=== PATIENT | female | born 1980 | race Caucasian/White ===

== ENCOUNTER 2017-07-02 07:00 | Emergency (ER) | payer OTHER ==
[~2017-07-02] VITALS: Ht 165.1 cm; Wt 61.2 kg
[2017-07-02] MEDS ORDERED: KETOROLAC 30 MG/ML VIAL IVP STA (07:24)
[2017-07-02 07:33] LABS: BASOPHILS % (AUTO) 1 % (0-10); EOSINOPHILS % (AUTO) 1 % (0-10); LYMPHOCYTES # (AUTO) 1.5 X 10^3 (1.0-4.0); LYMPHOCYTES % (AUTO) 28 % (12-44); MEAN CORPUSCULAR HEMOGLOBIN 30 PG (25-34); MEAN CORPUSCULAR HGB CONC 34 G/DL (32-36); MEAN CORPUSCULAR VOLUME 90 FL (80-99); MEAN PLATELET VOLUME 9.9 FL (7.4-10.4); MONOCYTES # (AUTO) 0.5 X 10^3 (0.0-1.0); MONOCYTES % (AUTO) 9 % (0-12); NEUTROPHILS # (AUTO) 3.2 X 10^3 (1.8-7.8); NEUTROPHILS % (AUTO) 61 % (42-75); PLATELET COUNT 188 10^3/uL (130-400); RED BLOOD COUNT 4.37 10^6/uL (4.35-5.85); WHITE BLOOD COUNT 5.2 10^3/uL (4.3-11.0)
[2017-07-02] MEDS ORDERED: LEVO50TA PO (07:39)
[2017-07-02] MEDS ORDERED: CALC-250 PO (07:39)
--- NOTE | 2017-07-02 07:51 | ED General ---
General Chief Complaint: Neurological Problems Stated Complaint: REAR HEAD PAIN Nursing Triage Note: pt reports for 2 weeks she has had increased SEE and ear pain and desribes it as a pressure around 3:00 am every day. Pt states she has been seen by a nurse practitioner at Dr. Rodriguez office and a Nurse Practioner at Dr. Segura. Pt states she has been taking an antibiotic and allergy medication to treat sinus infection. Pt reports she does not believe it to be sinus related. Nursing Sepsis Screen: No Definite Risk Source of Information: Patient Exam Limitations: No Limitations History of Present Illness Time Seen by Provider: 07:05 Initial Comments Here with report of posterior headache that she describes as a pressure that typically starts at about 3 a.m. and go still 7 a.m. and it gets better. His is been occurring daily. She states that the headaches are quite significant. She is worried that she has a brain tumor. Denies other dysfunction. She has been seen at Dr Ndiaye's office and has MRI scheduled for later this week. She has been taking sinus medication but does not believe this is sinus related. She's never had anything like this before. Timing/Duration: Other (3 weeks) Severity: Moderate Associated Systoms: No Chest Pain, No Cough, Fever/Chills, Headaches, Nausea/ Vomiting, No Shortness of Air, No Weakness Allergies and Home Medications Allergies Coded Allergies: succinylcholine (Verified Allergy, Unknown, 07/02/17) Home Medications Cholecalciferol 5,000 Unit Capsule, 5,000 UNIT PO, (Reported) Levothyroxine Sodium 50 Mcg Tablet, 50 MCG PO, (Reported) Constitutional: see HPI, No chills, No fever EENTM: no symptoms reported Respiratory: no symptoms reported Cardiovascular: no symptoms reported Gastrointestinal: see HPI, nausea Genitourinary: no symptoms reported : No Musculoskeletal: no symptoms reported Skin: no symptoms reported Psychiatric/Neurological: See HPI, Headache (left posterior pressure), Denies Numbness, Denies Paresthesia, Denies Weakness Hematologic/Lymphatic: No Symptoms Reported All Other Systems Reviewed Negative Unless Noted: Yes Past Biwtick-Cppjgb-Uokesb Hx Patient Social History Alcohol Use: Rarely Uses Recreational Drug Use: No Smoking Status: Never a Smoker 2nd Hand Smoke Exposure: No Recent Foreign Travel: No Contact w/Someone Who Travel: No Recent Infectious Disease Expo: No Physical Abuse: No Sexual Abuse: No Mistreated: No Fear: No Surgeries History of Surgeries: Yes Surgeries: Orthopedic, Tonsillectomy Respiratory History of Respiratory Disorde: No Cardiovascular History of Cardiac Disorders: No Neurological History of Neurological Disord: No Genitourinary History of Genitourinary Disor: No Gastrointestinal History of Gastrointestinal Di: No Musculoskeletal History of Musculoskeletal Dis: Yes Musculoskeletal Disorders: Fractures Endocrine History of Endocrine Disorders: Yes Endocrine Disorders: Hypothyroidsim Cancer History of Cancer: No Psychosocial History of Psychiatric Problem: No Suicide Risk Score: 0 Reviewed Nursing Assessment Reviewed/Agree w Nursing PMH: Yes Family Medical History Significant Family History: Other Conditions/Hx (dementia) Physical Exam Vital Signs Vital Sign - Last 12Hours 07/02/17 07:29 Temp 98.5 Pulse 107 Resp 18 B/P (MAP) 146/89 Pulse Ox 100 Capillary Refill : Less Than 3 Seconds General Appearance: No Apparent Distress, WD/WN, Anxious HEENT: PERRL/EOMI, TMs Normal, Pharynx Normal, Other (2 x 2 millimeter flat shiny nodule behind left here overlying 1 x 1 cm swelling.) Neck: Non Tender, Supple Respiratory: Lungs Clear, Normal Breath Sounds Cardiovascular: Regular Rate, Rhythm, No Murmur Gastrointestinal: Non Tender, Soft Back: Normal Inspection, No CVA Tenderness, No Vertebral Tenderness Extremity: Normal Inspection, Normal Range of Motion, Non Tender Neurologic/Psychiatric: Alert, Oriented x3, No Motor/Sensory Deficits, Normal Mood/Affect, weight control lecturer II-XII Norm as Tested Skin: Normal Color, Warm/Dry Progress/Results/Core Measures Results/Orders Lab Results Laboratory Tests Test 07/02/17 07:24 Range/Units White Blood Count 5.2 4.3-11.0 10^3/uL Red Blood Count 4.37 4.35-5.85 10^6/uL Hemoglobin 13.2 11.5-16.0 G/DL Hematocrit 39 35-52 % Mean Corpuscular Volume 90 80-99 FL Mean Corpuscular Hemoglobin 30 25-34 PG Mean Corpuscular Hemoglobin Concent 34 32-36 G/DL Red Cell Distribution Width 12.0 10.0-14.5 % Platelet Count 188 130-400 10^3/uL Mean Platelet Volume 9.9 7.4-10.4 FL Neutrophils (%) (Auto) 61 42-75 % Lymphocytes (%) (Auto) 28 12-44 % Monocytes (%) (Auto) 9 0-12 % Eosinophils (%) (Auto) 1 0-10 % Basophils (%) (Auto) 1 0-10 % Neutrophils # (Auto) 3.2 1.8-7.8 X 10^3 Lymphocytes # (Auto) 1.5 1.0-4.0 X 10^3 Monocytes # (Auto) 0.5 0.0-1.0 X 10^3 Eosinophils # (Auto) 0.0 0.0-0.3 10^3/uL Basophils # (Auto) 0.0 0.0-0.1 10^3/uL Sodium Level 140 135-145 MMOL/L Potassium Level 3.8 3.6-5.0 MMOL/L Chloride Level 107 98-107 MMOL/L Carbon Dioxide Level 19 L 21-32 MMOL/L Anion Gap 14 5-14 MMOL/L Blood Urea Nitrogen 15 7-18 MG/DL Creatinine 0.88 0.60-1.30 MG/DL Estimat Glomerular Filtration Rate > 60 BUN/Creatinine Ratio 17 Glucose Level 97 70-105 MG/DL Calcium Level 9.8 8.5-10.1 MG/DL Total Bilirubin 0.7 0.1-1.0 MG/DL Aspartate Amino Transf (AST/SGOT) 17 5-34 U/L Alanine Aminotransferase (ALT/SGPT) 11 0-55 U/L Alkaline Phosphatase 56 40-136 U/L Total Protein 8.0 6.4-8.2 GM/DL Albumin 4.7 H 3.2-4.5 GM/DL My Orders Orders - MAI ALFORD MD Cbc With Automated Diff (07/02/17 07:24) Comprehensive Metabolic Panel (07/02/17 07:24) Tick Panel With Lyme Eia (07/02/17 07:24) Saline Lock/Iv-Start (07/02/17 07:24) Urine Bedside (07/02/17 07:24) Ketorolac Injection (Toradol Injection) (07/02/17 07:24) West Nile Virus Igg & M (07/02/17 07:27) Ct Head Wo (07/02/17 08:05) Dexamethasone Pf Injection (Decadron Pf (07/02/17 09:32) Vital Signs/I&O Vital Sign - Last 12Hours 07/02/17 07:29 Temp 98.5 Pulse 107 Resp 18 B/P (MAP) 146/89 Pulse Ox 100 Blood Pressure Mean: 108 Progress Note : Progress Note Seen and evaluated. IV, labs, ECG and CT head ordered. We will check tick panel and West Nile virus. Patient moved from [place] back to [place] in March of this year. Toradol 30 mg IV. 0940: No acute findings. Patient feeling okay. Discharged home with return precautions. Patient verbalize understanding instructions and agreement with plan. We will give Decadron 10 mg IV. Diagnostic Imaging Diagonstic Imaging: CT Plain Films/CT/US/NM/MRI: head Comments VIA [facility] [address] [place], [place] NAME: KELL NDIAYE [facility] REC#: [id number] PT STATUS: REG ER : 1980 PHYSICIAN: MAI ALFORD MD ADMIT DATE: 07/02/17/ER Draft Date of Exam:07/02/17 CT HEAD WO PROCEDURE: CT head without contrast. TECHNIQUE: Multiple contiguous axial images were obtained through the brain without the use of intravenous contrast. INDICATION: Head pain. There is no hemorrhage, hydrocephalus, edema, mass, mass effect or evidence for elevated intracranial pressures. The basilar cisterns patent. The sulci non-effaced. Orbits, sinuses and calvarium appeared nonacute. IMPRESSION: Dictated on workstation # [id number] Dict: 07/02/17 0837 Trans: 07/02/17 0920 [facility] [id number] Interpreted by: SHERICE GUTIERREZ Electronically signed by: Departure Impression Impression: Primary Impression: Headache Qualified Codes: R51 - Headache Disposition: 01 HOME, SELF-CARE Condition: Stable Departure-Patient Inst. Decision time for Depature: 09:43 Referrals: JUSTIN MERCEDES MD (PCP/Family) Primary Care Physician Patient Instructions: Headache, Adult (DC) Add. Discharge Instructions: All discharge instructions reviewed with patient and/or family. Voiced understanding. Take medications as directed. Continue appointments as previously scheduled. You may take ibuprofen 800 mg every 8 hours as needed for pain. Return for worse pain, fever, vomiting, weakness, breathing problems, vision or balance problems or other concerns as needed. There is no indication for lumbar puncture or further evaluation here in the ER today although these may be pursued as outpatient under the direction of your doctor. Copy Copies To 1: SHIN NDIAYE MD Copies To 2: JUSTIN MERCEDES MD, TIMOTHY D MD Jul 02, 2017 07:51
[2017-07-02 07:53] LABS: ALANINE AMINOTRANSFERASE 11 U/L (0-55); ALBUMIN 4.7 GM/DL (3.2-4.5); ANION GAP 14 MMOL/L (5-14); ASPARTATE AMINO TRANSFERASE 17 U/L (5-34); BILIRUBIN,TOTAL 0.7 MG/DL (0.1-1.0); BLOOD UREA NITROGEN 15 MG/DL (7-18); BUN/CREATININE RATIO 17; CALCIUM 9.8 MG/DL (8.5-10.1); CARBON DIOXIDE 19 MMOL/L (21-32); CHLORIDE 107 MMOL/L (98-107); CREATININE SERUM 0.88 MG/DL (0.60-1.30); GFR ESTIMATED > 60; GLUCOSE 97 MG/DL (70-105); POTASSIUM 3.8 MMOL/L (3.6-5.0); SODIUM 140 MMOL/L (135-145)
--- NOTE | 2017-07-02 09:20 | Diagnostic Imaging Report ---
PROCEDURE: CT head without contrast. TECHNIQUE: Multiple contiguous axial images were obtained through the brain without the use of intravenous contrast. INDICATION: Head pain. There is no hemorrhage, hydrocephalus, edema, mass, mass effect or evidence for elevated intracranial pressures. The basilar cisterns patent. The sulci non-effaced. Orbits, sinuses and calvarium appeared nonacute. IMPRESSION: Negative Dictated by: Dictated on workstation # [id number]
[2017-07-02] MEDS ORDERED: DEXAMETHASONE PF 10 MG/ML (DECADRON) VIAL IV STA (09:32)
[2017-07-02] MEDS ORDERED: DEXAMETHASONE 10 MG/ML (DECADRON) 1 ML VIAL ONE (09:50)
[2017-07-02 10:10] VITALS: BP 125/78
[2017-07-04 01:23] LABS: LYME AB G M 0.06 Index (0.00-0.89)
[2017-07-04 07:55] LABS: LYME AB INTERP Negative (Negative)
[2017-07-04 07:57] LABS: WEST NILE IGG 0.45 Index (0.00-1.29); WEST NILE IGM 0.01 Index (0.00-0.89)
[2017-07-04 13:47] LABS: EHRLICHIA CHAFFEENSIS G ABY <1:16 (<1:16)
[2017-07-04 15:29] LABS: IGG ROCKY MOUNTAIN SPOTTED FEV <1:16 (<1:16); IGM ROCKY MOUNTAIN SPOTTED FEV <1:10 (<1:10)
[2017-07-05 10:20] LABS: TULAREMIA ANTIBODY <1:20
== END 2017-07-02 10:10 | disposition home or self-care (01) ==
LOC: EDUNIT# 07:00 → ER 07:04
DX: R51 Headache (principal); E03.9 Hypothyroidism, unspecified; Z90.89 Acquired absence of other organs
CPT/HCPCS: 36415; 70450; 80053; 84703; 85025; 86618; 86666; 86668; 86757; 86788; 86789; 96374; 96375

== ENCOUNTER → 2017-07-06 | Outpatient (CLI) | payer OTHER ==
[~2017-07-06] MED LIST: CALC-250 PO; GADOBUTROL 7.5 MMOL/7.5 ML (GADAVIST) VIAL IV ONE; LEVO50TA PO
--- NOTE | 2017-07-06 16:01 | Diagnostic Imaging Report ---
PROCEDURE: MR imaging of the brain with and without contrast. TECHNIQUE: Multiplanar, multisequence MR imaging of the brain was performed with and without contrast. INDICATION: Pulsatile tinnitus. Ear pain. Headache. COMPARISON: CT head without contrast of 07/02/2017. FINDINGS: No abnormal signal, enhancement, restricted water diffusion, or hemosiderin deposition. Normal morphology including the major midline structures, sella, and posterior fossa. Dedicated 3D high-resolution sequence through the level of the internal auditory canals demonstrates normal morphology with no abnormal mass. The orbits are negative. The paranasal sinuses and mastoids are clear. No extra-axial fluid collections or hydrocephalus. Normal intracranial flow voids. Normal bone marrow signal. IMPRESSION: Negative brain MRI including dedicated high-resolution 3D sequence through the level of the IACs. Dictated by: Dictated on workstation # [id number]
== END ==
LOC: RAD 10:57
PROVIDERS: ATTEND Otolaryngology Otolaryngology/Facial Plastic Surgery
DX: H93.A3 Pulsatile tinnitus, bilateral (principal); H92.03 Otalgia, bilateral; R51 Headache
CPT/HCPCS: 70553

== ENCOUNTER → 2018-04-19 | Outpatient (CLI) | payer OTHER ==
[~2018-04-19] MED LIST changes: -GADOBUTROL 7.5 MMOL/7.5 ML (GADAVIST) VIAL IV ONE
--- NOTE | 2018-04-19 13:48 | Diagnostic Imaging Report ---
INDICATION: Bilateral breast pain and lumpiness. No prior mammograms are available for comparison. 2-D and 3-D bilateral diagnostic mammography was performed. The current study was also evaluated with a Computer Aided Detection (CAD) system. Both breasts are heterogeneously dense, limiting the sensitivity of mammography. There is an area of slightly nodular density in the upper and outer aspect of the left breast approximately 5 cm from the nipple. This may be owing to a cluster of cysts. Ultrasound of this area will be performed. Right breast unremarkable. No suspicious calcifications are seen. IMPRESSION: BI-RADS zero 1. Nodularity in the upper-outer left breast 5 cm from the nipple. Direct sonographic interrogation of this region is recommended. In addition, sonographic interrogation of bilateral breast areas of pain and lumpiness should be performed as well. ACR BI-RADS Category 0: Incomplete. (Needs additional imaging evaluation). Result letter will be mailed to the patient. Note: At least 10% of breast cancer is not imaged by mammography. Dictated by: Dictated on workstation # [id number]
--- NOTE | 2018-04-19 14:04 | Diagnostic Imaging Report ---
INDICATION: Bilateral breast lumpiness and pain as well as density upper outer left breast on mammogram. Study is performed for further evaluation. Sonographic interrogation of all 4 quadrants and retroareolar regions of bilateral breasts was performed. No solid or cystic masses are seen. No sonographic abnormality seen. Specifically, no abnormality in the upper outer left breast is identified to account for the mammographic density. IMPRESSION: BI-RADS 3 No sonographic abnormality is seen. Even so, followup left mammogram in 6 months is recommended to confirm stability of the density in the upper-outer left breast. ACR BI-RADS Category 3: Probably benign findings. Dictated by: Dictated on workstation # [id number]
== END ==
LOC: RAD 12:50
PROVIDERS: ATTEND Nurse Practitioner Family
DX: N63.21 Unspecified lump in the left breast, upper outer quadrant (principal)
CPT/HCPCS: 76642; 77066

== ENCOUNTER → 2018-11-15 | Outpatient (CLI) | payer BC, OTHER ==
--- NOTE | 2018-11-15 18:07 | Diagnostic Imaging Report ---
INDICATION: Six-month followup of left breast and continued right breast pain. COMPARISON: Correlation is made with prior mammogram from 04/19/2018. EXAMINATION: 2D and 3D bilateral diagnostic mammography was performed with CAD. The current study was also evaluated with a Computer Aided Detection (CAD) system. FINDINGS: Both breasts remain heterogenously dense, limiting the sensitivity of mammography. Area of nodularity in the superior left breast is stable. No new mass is seen. No suspicious calcifications are identified. Axillae are unremarkable. IMPRESSION: Stable bilateral mammograms. Area of nodularity in the superior left breast remain stable. Additional six-month followup of left breast is recommended to show continued stability. ACR BI-RADS Category 3: Probably benign findings. Result letter will be mailed to the patient. Note: At least 10% of breast cancer is not imaged by mammography. Dictated by: Dictated on workstation # [id number]
== END ==
LOC: RAD 13:26
PROVIDERS: ATTEND Nurse Practitioner Family
DX: N63.20 Unspecified lump in the left breast, unspecified quadrant (principal)
CPT/HCPCS: 77066

== ENCOUNTER → 2019-07-02 | Outpatient (CLI) | payer BC, OTHER ==
--- NOTE | 2019-07-02 18:41 | Diagnostic Imaging Report ---
INDICATION: Six-month followup of left breast nodule. COMPARISON: Correlation is made with prior mammograms from 11/15/2018 and 04/19/2018. TECHNIQUE: 2-D and 3-D bilateral diagnostic mammography was performed. The current study was also evaluated with a Computer Aided Detection (CAD) system. 3-D tomosynthesis was also performed and reviewed. FINDINGS: Both breasts remain heterogeneously dense, limiting the sensitivity of mammography. Slight nodularity in the superior left breast is stable. No discrete mass or malignant-appearing microcalcifications are seen. There are benign calcifications bilaterally. The axillae are unremarkable. IMPRESSION: Stable bilateral mammograms with no mammographic features suspicious for malignancy identified. Patient may return to routine annual screening mammography. ACR BI-RADS Category 2: Benign findings. Result letter will be mailed to the patient. Note: At least 10% of breast cancer is not imaged by mammography. Dictated by: Dictated on workstation # [id number]
== END ==
LOC: RAD 07:57
PROVIDERS: ATTEND Family Medicine
DX: Z00.00 Encounter for general adult medical examination without abnormal findings (principal); N63.20 Unspecified lump in the left breast, unspecified quadrant
CPT/HCPCS: 77066

== ENCOUNTER 2019-07-11 05:43 | Outpatient (CLI) | payer OTHER ==
[~2019-07-11] VITALS: Ht 165.1 cm; Wt 60.3 kg
[2019-07-11] MEDS ORDERED: LEVO75TA6 PO (15:39)
[2019-07-11] MEDS ORDERED: PANT40TA3 PO (15:39)
[2019-07-11] MEDS ORDERED: PNV1TABL81 PO (15:39)
[2019-07-11] MEDS ORDERED: CHOL3000 PO (15:39)
== END 2019-07-11 15:41 | disposition home or self-care (01) ==
LOC: PREOP 05:43
PROVIDERS: ATTEND Surgery
DX: Z01.818 Encounter for other preprocedural examination (principal)

== ENCOUNTER 2019-07-15 12:54 | Day surgery (SDC) | payer OTHER ==
[~2019-07-15] VITALS: Ht 135 cm; Wt 66.0 kg
[~2019-07-15 12:54] MED LIST changes: +CHOL3000 PO; +LEVO75TA6 PO; +PANT40TA3 PO; +PNV1TABL81 PO
--- NOTE | 2019-07-15 13:03 | Progress Note-Pre Operative ---
Pre-Operative Progress Note H&P Reviewed The H&P was reviewed, patient examined and no changes noted. Date Seen by Provider: Jul 15, 2019 Time Seen by Provider: 13:02 Date H&P Reviewed: Jul 15, 2019 Time H&P Reviewed: 13:02 Pre-Operative Diagnosis: epigastric abd pain, reflux HARLEEN RESENDIZ DO Jul 15, 2019 13:03
[2019-07-15] MEDS ORDERED: LACTATED RINGERS 1,000 ML IV ONE (13:04)
[2019-07-15] MEDS ORDERED: MIDAZOLAM 2 MG/2 ML (VERSED) VIAL ONE (13:10)
[2019-07-15] MEDS ORDERED: proPOfol 200 MG/20 ML (DIPRIVAN) VIAL IV ONE (13:10)
[2019-07-15] MEDS ORDERED: LACTATED RINGERS 1,000 ML IV STA (13:26)
[2019-07-15] MEDS ORDERED: HURRICAINE EXT TUBE (BENZOCAINE) XX PRN (13:30)
[2019-07-15 13:37] VITALS: BP 140/70
[2019-07-15 14:30] VITALS: BP 99/58
[2019-07-15 14:35] VITALS: BP 96/53
--- NOTE | 2019-07-15 14:36 | Progress Note-Post Operative ---
Post-Operative Progess Note Surgeon (s)/Barber Tool Sharpener (s) Surgeon HARLEEN RESENDIZ DO Barber Tool Sharpener: na Pre-Operative Diagnosis epigastric abd pain, reflux Post-Operative Diagnosis small hiatal hernia Procedure & Operative Findings Date of Procedure 07/15/19 Procedure Performed/Findings egd c biopsies Anesthesia Type per terrazzo layer Estimated Blood Loss Estimated blood loss (mL): none Specimens/Packing Specimens Removed antrum, ge HARLEEN RESENDIZ DO Jul 15, 2019 14:36
--- NOTE | 2019-07-15 14:37 | Discharge Inst-Simple/Standard ---
Discharge Inst-Standard Patient Instructions/Follow Up Plan of Care/Instructions/FU: 2 weeks Kimberley Activity as Tolerated: Yes Discharge Diet: Regular Diet HARLEEN RESENDIZ DO Jul 15, 2019 14:37
[2019-07-15 14:45] VITALS: BP 96/53
[2019-07-15 15:13] VITALS: BP 114/58
--- NOTE | 2019-07-15 16:09 | Anesthesia-General Post-Op ---
MAC Patient Condition Mental Status/LOC: Same as Preop Cardiovascular: Satisfactory Nausea/Vomiting: Absent Respiratory: Satisfactory Pain: Controlled Complications: Absent Post Op Complications Complications None Follow Up Care/Instructions Patient Instructions None needed. Anesthesiology Discharge Order Discharge Order Patient is doing well, no complaints, stable vital signs, no apparent adverse anesthesia problems. No complications reported per nursing. PANTERA CAT CRNA Jul 15, 2019 16:09
--- NOTE | 2019-07-15 19:38 | OPERATIVE REPORT ---
DATE OF SERVICE: 07/15/2019 PREOPERATIVE DIAGNOSES: Epigastric abdominal pain, reflux. POSTOPERATIVE DIAGNOSIS: Small hiatal hernia. PROCEDURE PERFORMED: Esophagogastroduodenoscopy with biopsies. SURGEON: Harleen Chu DO ANESTHESIA: Per REFINERY SUPERINTENDENT. ESTIMATED BLOOD LOSS: None. COMPLICATIONS: None. INDICATIONS: The patient is a 39-year-old female who has been having epigastric abdominal pain and reflux symptoms. She understands risks and benefits of procedure and wished to proceed with procedure. Consent was signed in the chart. DESCRIPTION OF PROCEDURE: The patient was taken to the endoscopy suite, placed in left lateral recumbent position. Timeout was performed. Scope was inserted in mouth, down the esophagus, stomach and into the duodenum without difficulty. There were no polyps, masses or ulcerations within the duodenum. Scope was then slowly retracted back into the stomach where it was further insufflated. No polyps, masses or ulcerations. Biopsy of the antrum was obtained. Scope was retroflexed noting a very small hiatal hernia. No polyps, masses or ulcerations. Scope was returned to its normal position, slowly withdrawn to the distal esophagus. There were no polyps, masses or ulcerations. Very minimal erythematous changes. Biopsy of the GE junction was obtained. Scope was then slowly retracted back to completely remove, noting no other pathology. The patient tolerated procedure well without any complications. She was taken to recovery room in stable condition. RECOMMENDATIONS: The patient to continue on current medications. The patient will follow up in the office in 2 weeks. We will consider working up the gallbladder. Job ID: [id number] DocumentID: [id number] Dictated Date: 07/15/2019 14:40:01 Corporate Recycling Manager Date: 07/15/2019 19:37:49 Dictated By: HARLEEN CHU DO
== END 2019-07-15 15:55 | disposition home or self-care (01) ==
LOC: ENDO 12:54
PROVIDERS: ATTEND Surgery
DX: K29.50 Unspecified chronic gastritis without bleeding (principal); K21.9 Gastro-esophageal reflux disease without esophagitis; K44.9 Diaphragmatic hernia without obstruction or gangrene; E03.9 Hypothyroidism, unspecified; Z79.899 Other long term (current) drug therapy; Z88.8 Allergy status to other drugs, medicaments and biological substances; Z91.040 Latex allergy status; Z90.89 Acquired absence of other organs; Z82.49 Family history of ischemic heart disease and other diseases of the circulatory system
CPT/HCPCS: 84703

== ENCOUNTER → 2019-07-21 | Outpatient (CLI) | payer OTHER ==
--- NOTE | 2019-07-21 08:59 | Diagnostic Imaging Report ---
PROCEDURE: US Gallbladder. TECHNIQUE: Multiple real-time grayscale images were obtained over the right upper quadrant in various projections. INDICATION: Epigastric pain. FINDINGS: The liver is normal in size at 14.2 cm. The portal vein is patent and shows normal direction of flow. No discrete liver mass is identified. The gallbladder is without stones or sludge. No wall thickening or biliary ductal dilatation is seen. Pancreas is unremarkable. Right kidney is without evidence of calculi or hydronephrosis. There is no ascites. IMPRESSION: Unremarkable gallbladder ultrasound. Dictated by: Dictated on workstation # [id number]
== END ==
LOC: RAD 07:56
PROVIDERS: ATTEND Surgery
DX: R10.13 Epigastric pain (principal)
CPT/HCPCS: 76705

== ENCOUNTER → 2019-07-23 | Outpatient (CLI) | payer OTHER ==
[~2019-07-23] MED LIST changes: +CATHETER FLUSH 10 ML SYR IV PRN
--- NOTE | 2019-07-23 19:19 | Diagnostic Imaging Report ---
INDICATION: Epigastric pain. TECHNIQUE: Patient was administered 5.5 mCi of technetium-99m Choletec intravenously and imaging over the abdomen was performed. At one hour, patient ingested 8 ounces of Ensure and the gallbladder ejection fraction was calculated. FINDINGS: There is homogeneous uptake of activity throughout the liver. Prompt excretion of activity into the common duct and gallbladder is noted. There is normal passage of activity into the small bowel. Gallbladder ejection fraction is normal at 47%. IMPRESSION: Normal HIDA scan and gallbladder ejection fraction. Dictated by: Dictated on workstation # [id number]
== END ==
LOC: CARD 11:57
PROVIDERS: ATTEND Surgery
DX: R10.13 Epigastric pain (principal)
CPT/HCPCS: 78227

== ENCOUNTER 2019-08-11 12:42 | Outpatient (RCR) | payer OTHER ==
[~2019-08-11 12:42] MED LIST changes: -CATHETER FLUSH 10 ML SYR IV PRN
== END 2019-11-09 | disposition home or self-care (01) ==
LOC: CARD 12:42
PROVIDERS: ATTEND Nurse Practitioner Family
DX: R00.2 Palpitations (principal)
CPT/HCPCS: 93225; 93226

== ENCOUNTER → 2019-09-01 | Outpatient (CLI) | payer OTHER | LOC: CARD 10:24 | PROVIDERS: ATTEND Internal Medicine Cardiovascular Disease | DX: I10 Essential (primary) hypertension (principal); I49.1 Atrial premature depolarization; K21.9 Gastro-esophageal reflux disease without esophagitis | CPT/HCPCS: 93306 ==

== ENCOUNTER → 2019-09-03 | Outpatient (CLI) | payer OTHER | LOC: CARD 14:33 | PROVIDERS: ATTEND Internal Medicine Cardiovascular Disease | DX: I10 Essential (primary) hypertension (principal); I49.1 Atrial premature depolarization; K21.9 Gastro-esophageal reflux disease without esophagitis; R00.2 Palpitations | CPT/HCPCS: 93017 ==

== ENCOUNTER 2019-09-29 | Outpatient (RCR) | payer OTHER ==
[2019-09-03 15:15] VITALS: BP 124/81
--- NOTE | 2019-09-03 15:15 | Cardiology Stress Test Report ---
Stress Test Report Date of Procedure/Referring: Date of Procedure: Sep 03, 2019 PCP Tyrone Johnson MD Admitting Physician Valerie Leon MD Indications: palpitation Baseline Heart Rate: 78 Baseline Blood Pressure: Blood Pressure Systolic: 124 Blood Pressure Diastolic: 81 Baseline EKG: Baseline EKG: normal Summary/Conclusion: Summary: In summary, the patient started exercising with a baseline heart rate, blood pressure and EKG mentioned above Patient was able to exercise for a total of 8:30 minutes on Melo protocol, 10.3 METs Maximum heart rate 175 Maximum blood pressure 144/77 Stress EKG Minimal nondiagnostic changes Recovery EKG Return to baseline Conclusion: 1. Good exercise tolerance for a total of 8:30 minutes on Melo protocol, 10.3 METs, achieving 96 percent of maximum expected heart rate 2. Minimal nondiagnostic EKG changes with exercise returned to baseline during recovery 3. Baseline sinus rhythm that had her heart rate increased fairly quickly on early stages of exercise but she was able to exercise for total of 8 minutes 30 seconds on Melo protocol. TYRONE JOHNSON MD Sep 03, 2019 15:15 POS
== END 2019-12-02 | disposition home or self-care (01) ==
LOC: CARD
PROVIDERS: ATTEND Internal Medicine Cardiovascular Disease
DX: R00.2 Palpitations (principal)

== ENCOUNTER → 2020-12-24 | Outpatient (CLI) | payer OTHER ==
[~2020-12-24] MED LIST changes: -PANT40TA3 PO; +PANT40TA52 PO
--- NOTE | 2020-12-24 14:52 | Diagnostic Imaging Report ---
INDICATION: Routine screening. COMPARISON is made with prior mammograms from 07/02/2019 and 11/15/2018. 2-D and 3-D bilateral screening mammography was performed with CAD. Both breasts are heterogeneously dense, limiting the sensitivity of mammography. Occasional benign calcifications are noted. No mass or malignant appearing microcalcifications are seen. Axillae are unremarkable. IMPRESSION: BI-RADS Category 2 No mammographic features suspicious for malignancy are identified. ACR BI-RADS Category 2: Benign findings. Result letter will be mailed to the patient. Note: At least 10% of breast cancer is not imaged by mammography. Dictated by: Dictated on workstation # [id number]
== END ==
LOC: RAD 11:10
PROVIDERS: ATTEND Family Medicine
DX: Z12.31 Encounter for screening mammogram for malignant neoplasm of breast (principal)
CPT/HCPCS: 77063; 77067

== ENCOUNTER → 2021-01-15 | Outpatient (CLI) | payer OTHER | LOC: LAB 07:59 | PROVIDERS: ATTEND Obstetrics & Gynecology | DX: N92.6 Irregular menstruation, unspecified (principal); N95.1 Menopausal and female climacteric states; F41.9 Anxiety disorder, unspecified | CPT/HCPCS: 36415; 82670; 83001; 84144; 84403 ==

== ENCOUNTER → 2021-02-22 | Outpatient (CLI) | payer OTHER ==
[~2021-02-22] MED LIST changes: +GADOBUTROL 7.5 MMOL/7.5 ML (GADAVIST) VIAL IV ONE
--- NOTE | 2021-02-22 10:04 | Diagnostic Imaging Report ---
CLINICAL INDICATION: Patient having tremors. Patient has family history of the central tremors. EXAM: MRI of the brain performed without and with 6 cc of Gadavist IV contrast. Sequences include axial DWI, ADC map, axial gradient echo, axial T2, axial FLAIR, axial T1, axial T1 post IV contrast, coronal T1 fat-sat post IV contrast, and sagittal T1 post IV contrast. COMPARISON: MRI of the brain performed without and with IV contrast dated 07/06/2017. FINDINGS: There is no evidence of acute cerebral infarct, intracranial hemorrhage, or gross mass effect. The brain parenchymal volume appears appropriate for patient's age. There is normal villavicencio-white matter distinction. There is no significant midline shift or herniation. The [place] of Garcia vascular structures show no gross abnormality as visualized. The pituitary gland, sella, and suprasellar regions are unremarkable as visualized. There is no evidence of hydrocephalus. The basal cisterns are unremarkable. The skull, extracranial soft tissue, and orbits are unremarkable. The paranasal sinuses are unremarkable. Temporal bones show no significant abnormality. IMPRESSION: Unremarkable MRI of the brain. Dictated by: Dictated on workstation # [id number]
== END ==
LOC: RAD 08:45
PROVIDERS: ATTEND Family Medicine
DX: G25.0 Essential tremor (principal)
CPT/HCPCS: 70553

== ENCOUNTER → 2022-01-06 | Outpatient (CLI) | payer BC, OTHER ==
[~2022-01-06] MED LIST changes: -GADOBUTROL 7.5 MMOL/7.5 ML (GADAVIST) VIAL IV ONE
--- NOTE | 2022-01-06 13:35 | Diagnostic Imaging Report ---
INDICATION: Routine screening. COMPARISON is made with prior mammograms from 12/24/2020 and 07/02/2019. 2-D and 3-D bilateral screening mammography was performed with CAD. Both breasts are heterogeneously dense, limiting the sensitivity of mammography. The parenchymal pattern is stable. No mass or malignant-appearing microcalcifications are seen. Axillae are unremarkable. IMPRESSION: BI-RADS Category 1 No mammographic features suspicious for malignancy are identified. ACR BI-RADS Category 1: Negative. Result letter will be mailed to the patient. Note: At least 10% of breast cancer is not imaged by mammography. Dictated by: Dictated on workstation # [id number]
== END ==
LOC: RAD 11:30
PROVIDERS: ATTEND Family Medicine
DX: Z12.31 Encounter for screening mammogram for malignant neoplasm of breast (principal)
CPT/HCPCS: 77063; 77067

== ENCOUNTER → 2023-01-17 | Outpatient (CLI) | payer BC ==
--- NOTE | 2023-01-17 11:27 | Diagnostic Imaging Report ---
INDICATION: Routine screening. COMPARISON: 01/06/2022 and 12/24/2020. TECHNIQUE: 2D and 3D bilateral screening mammography was performed with CAD. FINDINGS: Both breasts are heterogeneously dense, limiting the sensitivity of mammography. No mass or malignant-appearing microcalcifications are seen. The axillae are unremarkable. IMPRESSION: No mammographic features suspicious for malignancy are identified. ACR BI-RADS Category 1: Negative. Result letter will be mailed to the patient. Note: At least 10% of breast cancer is not imaged by mammography. Dictated by: Dictated on workstation # [id number]
== END ==
LOC: RAD 09:30
PROVIDERS: ATTEND Family Medicine
DX: Z12.31 Encounter for screening mammogram for malignant neoplasm of breast (principal)
CPT/HCPCS: 77063; 77067